=== PATIENT | male | born 1980 | race Caucasian/White ===

== ENCOUNTER 2018-06-01 14:07 | Observation (INO) ==
[2018-06-01] MEDS ORDERED: Sod Chloride 0.9% Inj 1,000 ML IV.SIG ONE (14:37)
--- NOTE | 2018-06-01 14:48 | ED ---
HPI General Chief Complaint: Overdose Stated Complaint: emergent Time Seen by Provider: 06/01/18 14:09 History of Present Illness HPI Narrative: This patient was found in a hotel room with decreased responsiveness. He has been injecting heroin I am told. He is not able to provide any useful history or review of systems. He will briefly arouse to loud voice and then dozes off. Related Data Home Medications Medication Instructions Recorded Confirmed Unable to Obtain Home Meds 06/01/18 06/01/18 Allergies Allergy/AdvReac Type Severity Reaction Status Date / Time No Known Allergies Allergy Verified 06/01/18 14:22 Review of Systems ROS Unobtainable ROS Unobtainable: unobtainable due to mental status PMFSH Medical History Medical History IV drug abuse (Acute) Family History Family History Other No cardiac disease Social History Social History Substance History: Active Abuse Smoking Status: Current every day smoker Tobacco Type: Cigarettes How Often Do You Have a Drink Containing Alcohol: Never Recent Travel in [facility] within the Last 8 Weeks: No Recent Out of Country Travel within the Last 8 Weeks: No Substance Abuse Detail Heroin: Substance Use Status: Active Route Used Substance Abuse: Intravenously Immunization History Tetanus Immunization: Unable to Assess Exam Narrative Exam Narrative: GENERAL: Well-nourished, well-developed patient who is obtunded . SKIN: Focused skin assessment reveals no rash and nodules. Skin is Warm and dry. HEAD: Atraumatic. Normocephalic. EYES: Pupils equal and round and pinpoint. No scleral icterus. No injection or drainage. ENT: No nasal bleeding or discharge. Mucous membranes pink and moist. He has a gag reflex. He is controlling his airway at this time. NECK: Trachea midline. No JVD. CARDIOVASCULAR: Regular rate and rhythm. No murmur appreciated. RESPIRATORY: No accessory muscle use. Clear to auscultation. Breath sounds equal bilaterally. GASTROINTESTINAL: Abdomen soft, non-tender, nondistended. Hepatic and splenic margins not palpable. MUSCULOSKELETAL: No obvious deformities. No clubbing. No cyanosis. No edema. NEUROLOGICAL: Withdraws to pain stimuli. Opens his eyes to loud voice. He mumbles but is difficult to understand. He does not follow commands. Difficult to accurately gauge motor strength or sensation. PSYCHIATRIC: Impossible to truly assess mood and affect; insight and judgment poor. Course Initial Documented Vital Signs Pulse Rate 119 H 06/01/18 14:10 Respiratory Rate 12 06/01/18 14:10 Blood Pressure 139/77 06/01/18 14:10 Pulse Oximetry 97 06/01/18 14:10 Last Documented Vital Signs Pulse Rate 99 H 06/01/18 17:17 Respiratory Rate 14 06/01/18 17:17 Blood Pressure 124/68 06/01/18 17:17 Pulse Oximetry 99 06/01/18 17:17 Medical Decision Making MDM Narrative Medical decision making narrative: This is a 37-year-old male with altered mental status by report has heroin overdose. At this time he is controlling his airway. He has very difficult IV access. My suspicion is he may require observation for altered mental status in the hospital but at this point there is no airway issues. His blood pressure is normal so I do not think he needs a central line. So I have consulted the vascular access team to place ultrasound-guided IV. Labs have been ordered as well as brain CT. Workup is complete. Patient will require hospitalization to monitor his mental status and appropriately. I discussed with the hospitalist who is going to take care of this. Medical Screen Exam Complete: Yes Emergency Medical Condition: Yes Differential Diagnosis Differential Diagnosis: Heroin overdose, intracranial hemorrhage, overmedication Medical Records Medical records reviewed: Yes I reviewed the patient's medical records. Lab Data Lab results reviewed: Yes I reviewed the patient's lab results. Lab results narrative: CBC is normal. Has mild renal insufficiency Result diagrams: 06/01/18 15:30 06/01/18 15:30 Lab Results 06/01/18 06/01/18 Range/Units 15:30 15:30 WBC 10.9 (4.0-11.0) th/mm3 RBC 5.04 (4.50-5.90) mil/mm3 Hgb 15.1 (13.0-17.0) gm/dL Hct 43.3 (39.0-51.0) % MCV 85.8 (80.0-100.0) fL MCH 29.9 (27.0-34.0) pg MCHC 34.8 (32.0-36.0) % RDW 12.5 (11.6-17.2) % Plt Count 175 (150-450) th/mm3 MPV 10.3 (7.0-11.0) fL Prelim Diff (Auto) Slide review pending Neut % (Auto) 88.7 H (16.0-70.0) % Lymph % (Auto) 4.8 L (9.0-44.0) % [place] % (Auto) 5.9 (0.0-8.0) % Eos % (Auto) 0.3 (0.0-4.0) % Baso % (Auto) 0.3 (0.0-2.0) % Neut # (Auto) 9.7 H (1.8-7.7) th/mm3 Lymph # (Auto) 0.5 L (1.0-4.8) th/mm3 [place] # (Auto) 0.6 (0.0-0.9) th/mm3 Eos # (Auto) 0.0 (0.0-0.4) th/mm3 Baso # (Auto) 0.0 (0.0-0.2) th/mm3 WBC Differential . Diff Scan Auto diff confirmed Differential Comment . Sodium 139 (136-145) meq/L Potassium 4.6 (3.5-5.1) meq/L Chloride 106 (98-107) meq/L Carbon Dioxide 27.7 (21.0-32.0) meq/L Anion Gap 5 (5-15) meq/L BUN 15 (7-18) mg/dL Creatinine 1.32 H (0.60-1.30) mg/dL Estimated GFR 61 L (>89) mL/min Random Glucose 110 H (74-106) mg/dL Calcium 8.0 L (8.5-10.1) mg/dL Total Bilirubin 0.4 (0.2-1.0) mg/dL AST 102 H (15-37) U/L ALT 70 (12-78) U/L Alkaline Phosphatase 72 (45-117) U/L Total Protein 7.5 (6.4-8.2) g/dL Albumin 3.9 (3.4-5.0) g/dL Acetaminophen Less than 2.0 L (10.0-30.0) mcg/mL Serum Alcohol Less than 3 (0-5) mg/dL Imaging Data Attestation: I personally reviewed and interpreted this imaging study as follows : My impression: Brain CT shows nothing acute. Radiologist's impression: Head CT 06/01/18 14:38 CONCLUSION: 1. No acute findings in the brain. 2. Bilateral maxillary and ethmoid sinus disease. . Discharge Plan Discharge Disposition Patient Disposition: ED Admit(ED Internal Use Only) Discharge Details Diagnosis: Drug overdose Physicians Team ED Provider: Jimmy Waterman Primary Care Provider: UNKNOWN, Rxs /Orders / Referrals /Forms Prescriptions: No Action Unable to Obtain Home Meds RF: 0 Discharge Interventions Interventions: Vital Signs Last Done: 06/01/18 16:28 Status ED Status: With Doctor
[2018-06-01 15:46] LABS: Baso % (Auto) 0.3 % (0.0-2.0); Eos % (Auto) 0.3 % (0.0-4.0); Hematocrit 43.3 % (39.0-51.0); Hemoglobin 15.1 gm/dL (13.0-17.0); Lymph # (Auto) 0.5 th/mm3 (1.0-4.8); Lymph % (Auto) 4.8 % (9.0-44.0); Mean Corpuscular HGB Conc 34.8 % (32.0-36.0); Mean Corpuscular Hemoglobin 29.9 pg (27.0-34.0); Mean Corpuscular Volume 85.8 fL (80.0-100.0); Mean Platelet Volume 10.3 fL (7.0-11.0); Mono # (Auto) 0.6 th/mm3 (0.0-0.9); Mono % (Auto) 5.9 % (0.0-8.0); Neut # (Auto) 9.7 th/mm3 (1.8-7.7); Neut % (Auto) 88.7 % (16.0-70.0); Platelet Count 175 th/mm3 (150-450); Red Blood Count 5.04 mil/mm3 (4.50-5.90); Red Cell Distribution Width 12.5 % (11.6-17.2); White Blood Count 10.9 th/mm3 (4.0-11.0)
[2018-06-01 16:02] LABS: Alkaline Phosphatase 72 U/L (45-117); Total Protein 7.5 g/dL (6.4-8.2)
[2018-06-01 16:17] LABS: Alanine Aminotransferase 70 U/L (12-78); Albumin 3.9 g/dL (3.4-5.0); Anion Gap 5 meq/L (5-15); Aspartate Aminotransferase 102 U/L (15-37); Blood Urea Nitrogen 15 mg/dL (7-18); Carbon Dioxide 27.7 meq/L (21.0-32.0); Chloride 106 meq/L (98-107); Glomerular Filtration Rate 61 mL/min (>89); Glucose,Random 110 mg/dL (74-106); Potassium 4.6 meq/L (3.5-5.1); Sodium 139 meq/L (136-145)
[2018-06-01] MEDS ORDERED: Acetaminophen 325 MG Tablet PO PRN (16:45)
--- NOTE | 2018-06-01 16:53 | P.HP ---
History of Present Illness Primary Care Physician: UNKNOWN Chief Complaint: Altered mental status change History of Present Illness: 37-year-old man no significant past medical history however with known history of IV drug use was initially brought to the ED for evaluation of altered mental status change. Apparently patient was found unresponsive in a hotel room where he has been staying. Per EMR report, patient's girlfriend mentioned that he has old beats on heroine. During my exam patient was alert and oriented x3, and states he has just arriving [place] over the past 48 hours. States he has brought some laced heroine on the street. Denies any chest pain or shortness of breath. Patient states he has a rental car which he should have returned a day ago and would like to be discharged in order to take care of business. Currently he denies any GI bleed. Review of Systems All other systems reviewed negative except as stated in HPI PMFSH - History History Provided By: Patient - Medical History Medical History: Medical History (Last Reviewed 06/01/18 @ 14:41 by Jimmy Waterman MD) IV drug abuse - Family History Family History: Family History (Last Updated 06/01/18 @ 16:50 by Akash Millan MD) Other No cardiac disease - Tobacco History Tobacco Use In Past 30 Days: Yes Smoking Status: Current every day smoker Tobacco Type: Cigarettes - Alcohol History How Often Do You Have a Drink Containing Alcohol: Never - Substance Use History Substance History: Active Abuse - Substance Use Type Heroin Status: Active Route Used: Intravenously - Travel History Recent Travel in the [place] Within the Last 8 Weeks: No Recent Travel Out of the Country Within the Last 8 Weeks: No - Immunization History Tetanus Immunization: Unable to Assess Medications and Allergies Active Medications: Active Medications Sodium Chloride (Ns Flush) 2 ml IV.FLUSH PRN PRN PRN Reason: FLUSH AFTER USING IV ACCESS Allergies Allergy/AdvReac Type Severity Reaction Status Date / Time No Known Allergies Allergy Verified 06/01/18 14:22 Home Medications Medication Instructions Recorded Confirmed Type Unable to Obtain Home Meds 06/01/18 06/01/18 History Exam Vital signs: Vital Signs 06/01/18 14:10 06/01/18 14:23 06/01/18 15:32 Pulse Rate 119 H 119 H 106 H Respiratory Rate 12 Blood Pressure 139/77 Pulse Oximetry 97 94 L 06/01/18 15:36 06/01/18 16:28 Pulse Rate 108 H 100 H Respiratory Rate 14 14 Blood Pressure 126/72 117/61 Pulse Oximetry 96 98 Intake & Output 05/31/18 06/01/18 06/01/18 18:59 06:59 18:59 Intake Total 1000 / 1000 Balance 1000 / 1000 Weight 95.254 kg Intake: IV 1000 / 1000 NS Inj 1,000 ML @ Wide Open IV. 1000 / 1000 SIG BOLUS ONE Rx#:[id number] Narrative: GENERAL: NAD SKIN: Warm and dry. HEAD: Atraumatic. Normocephalic. EYES: Pupils equal and round. No scleral icterus. No injection or drainage. ENT: No nasal bleeding or discharge. Mucous membranes pink and moist. NECK: Trachea midline. No JVD. CARDIOVASCULAR: Regular rate and rhythm. RESPIRATORY: No accessory muscle use. Clear to auscultation. Breath sounds equal bilaterally. GASTROINTESTINAL: Abdomen soft, non-tender, nondistended. Hepatic and splenic margins not palpable. MUSCULOSKELETAL: Extremities without clubbing, cyanosis, or edema. No obvious deformities. NEUROLOGICAL: Awake and alert. No obvious cranial nerve deficits. Motor grossly within normal limits. Five out of 5 muscle strength in the arms and legs. Normal speech. Results - Labs CBC & Chem 7: 06/01/18 15:30 06/01/18 15:30 Labs: Laboratory Results - last 24 hr 06/01/18 06/01/18 15:30 15:30 WBC 10.9 RBC 5.04 Hgb 15.1 Hct 43.3 MCV 85.8 MCH 29.9 MCHC 34.8 RDW 12.5 Plt Count 175 MPV 10.3 Prelim Diff (Auto) Slide review pending Neut % (Auto) 88.7 H Lymph % (Auto) 4.8 L [place] % (Auto) 5.9 Eos % (Auto) 0.3 Baso % (Auto) 0.3 Neut # (Auto) 9.7 H Lymph # (Auto) 0.5 L [place] # (Auto) 0.6 Eos # (Auto) 0.0 Baso # (Auto) 0.0 WBC Differential . Diff Scan Auto diff confirmed Differential Comment . Sodium 139 Potassium 4.6 Chloride 106 Carbon Dioxide 27.7 Anion Gap 5 BUN 15 Creatinine 1.32 H Estimated GFR 61 L Random Glucose 110 H Calcium 8.0 L Total Bilirubin 0.4 AST 102 H ALT 70 Alkaline Phosphatase 72 Total Protein 7.5 Albumin 3.9 Acetaminophen Less than 2.0 L Serum Alcohol Less than 3 Caprini VTE Risk Assessment Caprini Risk Assessment Model: Point Value = 1 Point Value = 2 Point Value = 3 Point Value = 5 Age 41-60 Minor surgery BMI > 25 kg/m2 Swollen legs Varicose veins or History of unexplained or recurrent spontaneous Oral contraceptives or hormone replacement Sepsis (< 1 month) Serious lung disease, including pneumonia (< 1 month) Abnormal pulmonary function Acute myocardial infarction Congestive heart failure (< 1 month) History of inflammatory bowel disease Medical patient at bed rest Age 61-74 Arthroscopic surgery Major open surgery (> 45 min) Laparoscopic surgery (> 45 min) Malignancy Confined to bed (> 72 hours) Immobilizing plaster cast Central venous access Age >= 75 History of VTE Family history of VTE Factor V Leiden Prothrombin [id number] Lupus anticoagulant Anticardiolipin antibodies Elevated serum homocysteine Heparin-induced thrombocytopenia Other congenital or acquired thrombophilia Stroke (< 1 month) Elective arthroplasty Hip, pelvis, or leg fracture Acute spinal cord injury (< 1 month) Prophylaxis Regimen: Total Risk Factor Score Risk Level Prophylaxis Regimen 0-1 Low Early ambulation 2 Moderate Order ONE of the following: *Sequential Compression Device (SCD) *Heparin 5000 units SQ BID 3-4 Higher Order ONE of the following medications: *Heparin 5000 units SQ TID *Enoxaparin/Lovenox 40 mg SQ daily (WT < 150 kg, CrCl > 30 mL/min) *Enoxaparin/Lovenox 30 mg SQ daily (WT < 150 kg, CrCl > 10-29 mL/min) *Enoxaparin/Lovenox 30 mg SQ BID (WT < 150 kg, CrCl > 30 mL/min) AND/OR *Sequential Compression Device (SCD) 5 or more Highest Order ONE of the following medications: *Heparin 5000 units SQ TID (Preferred with Epidurals) *Enoxaparin/Lovenox 40 mg SQ daily (WT < 150 kg, CrCl > 30 mL/min) *Enoxaparin/Lovenox 30 mg SQ daily (WT < 150 kg, CrCl > 10-29 mL/min) *Enoxaparin/Lovenox 30 mg SQ BID (WT < 150 kg, CrCl > 30 mL/min) AND *Sequential Compression Device (SCD) Assessment and Plan - Plan 37-year-old man with Toxic metabolic-improving Secondary to heroin drug overdose CBC and BMP unremarkable Head CT pending Heroin drug overdose Patient was initially brought to the hospital and was altered however during my exam was alert and oriented x3 Extensively counseled against drug abuse Tachycardia Secondary to above Gentle IV fluid hydration DVT prophylaxis: Lovenox
[2018-06-01] MEDS ORDERED: Sod Chloride 0.9% Inj 1,000 ML IV.CONT SCH (17:00)
--- NOTE | 2018-06-01 17:06 | CT ---
EXAM DATE: 06/01/2018 4:54 PM EST AGE/SEX: 37 years / Male INDICATIONS: Altered mental status. CLINICAL DATA: This is the patient's initial encounter. Patient reports that signs and symptoms have been present for 1 day and indicates a pain score of Nonresponsive. MEDICAL/SURGICAL HISTORY: None. None. RADIATION DOSE: 56.35 CTDI (mGy) COMPARISON: No prior exams available for comparison. TECHNIQUE: CT of the head without contrast. Using automated exposure control and adjustment of the mA and/or kV according to patient size, radiation dose was kept as low as reasonably achievable to ob tain optimal diagnostic quality images. DICOM format image data is available electronically for revi ew and comparison. FINDINGS: Cerebrum: The ventricles are normal for age. No evidence of midline shift, mass lesion, hemorrhage or acute infarction. No extraaxial fluid collections are seen. Posterior Fossa: The cerebellum and brainstem are intact. The 4th ventricle is midline. The cerebe llopontine angle is unremarkable. Extracranial: The visualized portion of the orbits is intact. There is complete opacification of the visualized portion of the right maxillary sinus, air-fluid level in the left maxillary sinus, and pa rtial opacification of multiple anterior mid bilateral ethmoids. Skull: The calvaria is intact. No evidence of skull fracture. CONCLUSION: 1. No acute findings in the brain. 2. Bilateral maxillary and ethmoid sinus disease. . Electronically signed by: Cosme Barbour MD Board Certified Radiologist 06/01/2018 5:04 PM EST
[2018-06-01 20:52] LABS: Amphetamine Screen,Urine Neg (Neg); Barbiturate Screen,Urine Neg (Neg); Cannabinoid Screen,Urine Neg (Neg); Cocaine Screen,Urine Neg (Neg)
[2018-06-01 20:55] LABS: Opiate Screen,Urine Pos (Neg)
[2018-06-02] MEDS ORDERED: Enoxaparin Inj 40 MG/0.4 ML Syringe SQ SCH (09:00)
== END 2018-06-01 21:24 | disposition home or self-care (01) ==
LOC: NEDA 14:07 → NEPC 14:07 → NEPGCP 19:41
PROVIDERS: ADMIT Hospitalist; ATTEND Hospitalist
DX: F17.210 Nicotine dependence, cigarettes, uncomplicated; R00.0 Tachycardia, unspecified; F19.10 Other psychoactive substance abuse, uncomplicated; R41.82 Altered mental status, unspecified; T40.1X1A Poisoning by heroin, accidental (unintentional), initial encounter
CPT/HCPCS: 70450; 80053; 80307; 85025; 90760; 96360; 99285; G0378; J7030